=== PATIENT | female | born 1995 | race Caucasian/White ===

== ENCOUNTER 2025-04-02 22:18 | Inpatient (IN) | payer OTHER ==
[2025-04-02] MEDS ORDERED: Lidocaine 1% 50 ML MDV INJECT PRN (23:33)
[2025-04-02] MEDS ORDERED: Sodium Chloride 0.9% 10 ML Syringe FLUSH PRN (23:33)
[2025-04-02] MEDS ORDERED: Oxytocin/0.9 % Sodium Chloride 30 UNIT/500 ML BAG IV SCH (23:45)
[2025-04-02 23:59] LABS: BASOPHILS PERCENT AUTO 0.2 % (0.0-1.0); EOSINOPHILS ABSOLUTE AUTO 0.3 K/mm3 (0.0-0.4); HEMATOCRIT 33.4 % (37.0-47.0); IMMATURE GRAN ABSOLUTE AUTO 0.04 K/mm3 (0.00-0.05); IMMATURE GRAN PERCENT AUTO 0.4 % (0.0-0.4); LYMPHOCYTES ABSOLUTE AUTO 1.7 K/mm3 (1.0-4.8); LYMPHOCYTES PERCENT AUTO 18.8 % (24.0-44.0); MEAN CORPUSCULAR HGB CONC 32.9 g/dl (32.0-36.0); MEAN CORPUSCULAR VOLUME 88.1 fl (83.0-99.0); MEAN PLATELET VOLUME 10.9 fl (9.4-12.3); MONOCYTES ABSOLUTE AUTO 0.7 K/mm3 (0.0-0.8); MONOCYTES PERCENT AUTO 8.1 % (0.0-8.0); NEUTROPHILS ABSOLUTE AUTO 6.3 K/mm3 (1.8-7.7); NEUTROPHILS PERCENT AUTO 69.5 % (41.0-71.0); PLATELET COUNT,PLT 199 K/mm3 (150-400); RED BLOOD CELL COUNT 3.79 M/mm3 (4.10-5.30); WHITE BLOOD CELL COUNT,WBC 9.11 K/mm3 (3.9-11.3)
[2025-04-03 00:15] LABS: CREATININE,URINE RAND 23.5 mg/dL (30.0-125.0)
[2025-04-03 00:16] LABS: CREATININE 0.6 mg/dL (0.55-1.02); EST CRCL DRUG DOSING (CG) 132.11 mL/min
[2025-04-03 00:16] LABS: PROTEIN,URINE RANDOM < 6.0 mg/dL (0.0-11.8)
[2025-04-03] MEDS: Ondansetron 4 MG/2 ML SDV IVPUSH PRN (00:25)
[2025-04-03 00:27] LABS: URIC ACID 3.7 mg/dL (2.6-6.0)
[2025-04-03] MEDS: diphenhydrAMINE 50 MG/ML SDV IVPUSH ONE (00:30)
[2025-04-03] MEDS: Nalbuphine 10 MG/1 ML Vial IVPUSH PRN (01:53)
[2025-04-03] MEDS: diphenhydrAMINE 25 MG Cap PO ONE (02:11)
[2025-04-03] MEDS: Lactated Ringers 1,000 ML IV SCH (02:55)
[2025-04-03] MEDS ORDERED: ePHEDrine 50 MG/ML SDV IVPUSH PRN (03:28)
[2025-04-03] MEDS: fentaNYL 100 MCG/2 ML SDV EPIDUR PRN (03:46)
[2025-04-03] MEDS: droPERidol 2.5 MG/ML SDV IVPUSH SCH (03:55)
[2025-04-03] MEDS: Bupivacaine/fentaNYL/NS 100 ML Bag EPIDUR PRN (04:00)
[2025-04-03] MEDS: Oxytocin/0.9 % Sodium Chloride 30 UNIT/500 ML BAG IV SCH (08:34)
[2025-04-03] MEDS: diphenhydrAMINE 50 MG/ML SDV IVPUSH PRN (11:00)
[2025-04-03] MEDS: Acetaminophen 325 MG Tab PO PRN (12:54)
[2025-04-04] MEDS ORDERED: Sodium Chloride 0.9% 10 ML Syringe FLUSH PRN (04:11)
[2025-04-04] MEDS ORDERED: Lactated Ringers 1,000 ML IV SCH (04:15)
[2025-04-04] MEDS: ceFAZolin 1 GM in Sodium Chloride 0.9% 50 ML IV ONE (04:18)
[2025-04-04] MEDS: Azithromycin 500 MG in Sodium Chloride 0.9% 250 ML IV ONE (04:19)
[2025-04-04] MEDS: Citric Acid/Sodium Citrate Solution 30 ML Cup PO ONE (04:20)
[2025-04-04] MEDS: Metoclopramide 10 MG/2 ML SDV IVPUSH ONE (04:20)
[2025-04-04] MEDS ORDERED: Lidocaine 2% 5 ML SDV ONE (04:31)
[2025-04-04] MEDS ORDERED: Lidocaine 2% with EPINEPHrine 1:200,000 20 ML SDV ONE (04:33)
[2025-04-04] MEDS ORDERED: Ondansetron 4 MG/2 ML SDV ONE (04:56)
[2025-04-04] MEDS ORDERED: Ketorolac 30 MG/ML SDV ONE (04:56)
[2025-04-04] MEDS ORDERED: Lactated Ringers 1,000 ML ONE (05:01)
[2025-04-04] MEDS ORDERED: Oxytocin/0.9 % Sodium Chloride 30 UNIT/500 ML BAG IV ONE (05:15)
[2025-04-04] MEDS ORDERED: Phenylephrine 1% 10 MG/ML SDV ONE (05:28)
[2025-04-04] MEDS ORDERED: Ondansetron 4 MG/2 ML SDV IVPUSH PRN (06:00)
[2025-04-04] MEDS ORDERED: Meperidine 50 MG/ML Vial IVPUSH PRN (06:00)
[2025-04-04] MEDS ORDERED: fentaNYL 100 MCG/2 ML SDV IVPUSH PRN (06:00)
[2025-04-04] MEDS ORDERED: diphenhydrAMINE 50 MG/ML SDV IVPUSH PRN (06:00)
[2025-04-04] MEDS ORDERED: Methylergonovine 0.2 MG/1 ML Amp ONE (06:10)
[2025-04-04] MEDS: Methylergonovine 0.2 MG/1 ML Amp IM STA (06:15)
[2025-04-04] MEDS ORDERED: Bupivacaine 0.25% 10 ML SDV ONE (07:00)
[2025-04-04] MEDS ORDERED: Sodium Chloride 0.9% 10 ML SDV ONE (07:00)
[2025-04-04] MEDS ORDERED: Naloxone 0.4 MG/ML SDV IVPUSH PRN (07:28)
[2025-04-04] MEDS ORDERED: ePHEDrine 50 MG/ML SDV IVPUSH PRN (07:28)
[2025-04-04] MEDS ORDERED: Dextrose 5%-Lactated Ringers 1,000 ML IV SCH (07:28)
[2025-04-04] MEDS ORDERED: Acetaminophen 325 MG Tab PO PRN (08:00)
[2025-04-04] MEDS: Acetaminophen/oxyCODONE 325-5 MG Tab PO PRN ×2 (08:43→16:31)
[2025-04-04] MEDS ORDERED: Sodium Chloride 0.9% 10 ML Syringe FLUSH SCH (09:00)
[2025-04-04] MEDS: Ketorolac 30 MG/ML SDV IVPUSH SCH (11:00)
[2025-04-04] MEDS: Docusate Sodium 100 MG Cap PO PRN (15:15)
[2025-04-04 15:37] LABS: BASOPHILS PERCENT AUTO 0.1 % (0.0-1.0); EOSINOPHILS PERCENT AUTO 0.1 % (0.0-6.0); HEMATOCRIT 31.4 % (37.0-47.0); HEMOGLOBIN 10.3 gm/dl (12.0-16.0); IMMATURE GRAN ABSOLUTE AUTO 0.02 K/mm3 (0.00-0.05); IMMATURE GRAN PERCENT AUTO 0.2 % (0.0-0.4); LYMPHOCYTES ABSOLUTE AUTO 0.6 K/mm3 (1.0-4.8); LYMPHOCYTES PERCENT AUTO 7.3 % (24.0-44.0); MEAN CORPUSCULAR HGB CONC 32.8 g/dl (32.0-36.0); MEAN CORPUSCULAR VOLUME 88.5 fl (83.0-99.0); MEAN PLATELET VOLUME 10.5 fl (9.4-12.3); MONOCYTES ABSOLUTE AUTO 0.3 K/mm3 (0.0-0.8); MONOCYTES PERCENT AUTO 2.9 % (0.0-8.0); NEUTROPHILS ABSOLUTE AUTO 7.8 K/mm3 (1.8-7.7); NEUTROPHILS PERCENT AUTO 89.4 % (41.0-71.0); PLATELET COUNT,PLT 155 K/mm3 (150-400); RED BLOOD CELL COUNT 3.55 M/mm3 (4.10-5.30); WHITE BLOOD CELL COUNT,WBC 8.72 K/mm3 (3.9-11.3)
[2025-04-04 16:25] LABS: INR 0.95; PROTHROMBIN TIME 10.1 SECONDS (9.7-12.0)
[2025-04-04 16:27] LABS: PTT,PARTIAL THROMBOPLSTIN TIME 31.3 SECONDS (21.7-31.4)
[2025-04-04 17:46] LABS: SLIDE REVIEW ABNORMAL SMEAR
[2025-04-05] MEDS ORDERED: Ibuprofen 600 MG Tab PO SCH (05:00)
[2025-04-05 05:53] LABS: BASOPHILS PERCENT AUTO 0.2 % (0.0-1.0); EOSINOPHILS ABSOLUTE AUTO 0.1 K/mm3 (0.0-0.4); EOSINOPHILS PERCENT AUTO 1.5 % (0.0-6.0); HEMATOCRIT 27.5 % (37.0-47.0); IMMATURE GRAN ABSOLUTE AUTO 0.07 K/mm3 (0.00-0.05); IMMATURE GRAN PERCENT AUTO 0.8 % (0.0-0.4); LYMPHOCYTES PERCENT AUTO 11.3 % (24.0-44.0); MEAN CORPUSCULAR HEMOGLOBIN 28.8 pg (28.0-32.0); MEAN CORPUSCULAR HGB CONC 32.7 g/dl (32.0-36.0); MEAN CORPUSCULAR VOLUME 87.9 fl (83.0-99.0); MEAN PLATELET VOLUME 10.4 fl (9.4-12.3); MONOCYTES ABSOLUTE AUTO 0.3 K/mm3 (0.0-0.8); MONOCYTES PERCENT AUTO 3.3 % (0.0-8.0); NEUTROPHILS ABSOLUTE AUTO 7.2 K/mm3 (1.8-7.7); NEUTROPHILS PERCENT AUTO 82.9 % (41.0-71.0); PLATELET COUNT,PLT 160 K/mm3 (150-400); RED BLOOD CELL COUNT 3.13 M/mm3 (4.10-5.30); WHITE BLOOD CELL COUNT,WBC 8.71 K/mm3 (3.9-11.3)
[2025-04-05] MEDS: Ibuprofen 600 MG Tab PO SCH (06:15)
[2025-04-05 06:27] LABS: SLIDE REVIEW ABNORMAL SMEAR
[2025-04-05 07:26] LABS: TSH 5.239 uIU/mL (0.358-3.74)
[2025-04-05 07:46] LABS: T4 FREE 1.45 ng/dL (0.76-1.46)
[2025-04-05] MEDS ORDERED: Gentamicin 360 MG in Sodium Chloride 0.9% 100 ML IV ONE (08:30)
[2025-04-05] MEDS: Clindamycin Phosphate in D5W 900 MG in Premix Bag 1 BAG IV SCH ×2 (10:38→18:19)
[2025-04-06] MEDS: diphenhydrAMINE 50 MG/ML SDV IVPUSH PRN (07:49)
[2025-04-06] MEDS: Ondansetron 4 MG/2 ML SDV IVPUSH ONE (08:03)
[2025-04-06] MEDS: Hydrocortisone 1% Crm 30 GM Tube TOP PRN (08:35)
[2025-04-06] MEDS: Polyethylene Glycol 3350 Powder 17 GM Packet PO PRN (08:38)
[2025-04-06] MEDS: Sodium Chloride 0.9% 100 ML IV SCH (20:47)
[2025-04-06] MEDS: Iopamidol 755 Mg/ML 100 ML Bottle IVPUSH ONE (20:47)
== END 2025-04-07 10:45 | disposition home or self-care (01) | DRG 788 ==
LOC: JD.OBCHECK 22:18 → JD.OB 22:30 → JD.OBCHECK 23:33 → JD.OB 23:33 → OBSVTOIN 04-04 05:12 → JD.OB 04-04 05:13
PROVIDERS: ADMIT Obstetrics & Gynecology; ATTEND Obstetrics & Gynecology
PROC: 3E0R3BZ Introduction of Anesthetic Agent into Spinal Canal, Percutaneous Approach (ICD-10-PCS; principal; 2025-04-04 04:40)
PROC: 10D00Z1 Extraction of Products of Conception, Low, Open Approach (ICD-10-PCS; principal; 2025-04-04 04:40)
DX: O48.0 Post-term pregnancy (principal); Z3A.40 40 weeks gestation of pregnancy; Z37.0 Single live birth; Z88.8 Allergy status to other drugs, medicaments and biological substances; Z98.890 Other specified postprocedural states
CPT/HCPCS: 01961; 01967; 36415; 51702; 59025; 71275; 71275-26; 82565; 82570; 83615; 84112; 84156; 84439; 84443; 84450; 84460; 84520; 84550; 85025; 85384; 85610; 85730; 86592; 86850; 86900; 86901; 99140; A9270-GY; J0456; J0665; J0690; J0736; J1200; J1580; J1790; J1885; J2003; J2210; J2300; J2371; J2405; J2765; J3010; J3490; J7050; J7120; J7999; Q9967